=== PATIENT | male | born 1975 | race Hispanic/Latino ===

== ENCOUNTER 2022-07-07 23:20 | Emergency (ER) | payer MEDICARE, OTHER ==
[~2022-07-07] VITALS: Ht 175.3 cm; Wt 81.6 kg
[2022-07-08] MEDS ORDERED: KETOROLAC TROMETHAMINE 60 MG/2 ML VIAL IM ONE (00:30)
[2022-07-08] MEDS ORDERED: ORPHENADRINE CITRATE 30 MG/ML VIAL IM ONE (00:30)
[2022-07-08 00:43] LABS: CLARITY,URINE CLEAR (CLEAR); COLOR,URINE YELLOW (YELLOW); KETONES,URINE NEGATIVE (NEGATIVE); LEUKOCYTE ESTERASE ,URINE NEGATIVE (NEGATIVE); NITRITE,URINE NEGATIVE (NEGATIVE); PROTEIN,URINE DIPSTICK NEGATIVE (NEGATIVE); URINE UROBILINOGEN 0.2 mg/dL (0.2 - 1)
[2022-07-08 00:48] LABS: AMORPHOUS SEDIMENT,URINE FEW (FEW); BACTERIA,URINE RARE /HPF; WBC,URINE (MAN) 0-5 /HPF (0-5)
[2022-07-08] MEDS ORDERED: MEDROL4 M2 PO (01:41)
[2022-07-08 02:23] VITALS: BP 127/73
== END 2022-07-08 02:24 | disposition home or self-care (01) ==
LOC: ER 23:33
DX: M54.41 Lumbago with sciatica, right side (principal); M62.81 Muscle weakness (generalized); R50.9 Fever, unspecified; G40.909 Epilepsy, unspecified, not intractable, without status epilepticus; H54.7 Unspecified visual loss; F17.210 Nicotine dependence, cigarettes, uncomplicated
CPT/HCPCS: 74176; 81001; 99283; J1885; J2360

== ENCOUNTER 2024-06-15 04:47 | Inpatient (IN) | payer OTHER, MEDICARE ==
[~2024-06-15] VITALS: Ht 175.3 cm; Wt 77.1 kg
[2024-06-15] VITALS (9 sets, daily range): BP systolic 119–141; BP diastolic 75–96; PULSE 62–91; RESP 18; TEMP 97.3–98.6; O2SAT 97–100
[~2024-06-15 04:47] MED LIST: MEDROL4 M2 PO
[2024-06-15 05:14] LABS: BASOPHILS # (AUTO) 0.1 (0.0-0.1); EOSINOPHILS # (AUTO) 0.4 (0.0-0.4); EOSINOPHILS % 5.6 % (0.0-6.0); HEMATOCRIT 42.9 % (38.2-49.6); HEMOGLOBIN 14.8 g/dL (14.0-18.0); LYMPHOCYTES # (AUTO) 2.1 (1.0-3.2); LYMPHOCYTES % 30.5 % (18.0-39.1); MEAN CORPUSCULAR HGB CONC 34.5 g/dL (31-35); MEAN CORPUSCULAR VOLUME 89.7 fL (81-99); MONOCYTES # (AUTO) 0.5 (0.2-0.8); MONOCYTES % 7.6 % (4.4-11.3); NEUTROPHILS # (AUTO) 3.8 (2.1-6.9); NEUTROPHILS % 55.2 % (38.7-80.0); PLATELET COUNT 248 x10e3/uL (140-360); RED BLOOD COUNT 4.78 x10e6/uL (4.3-5.7); RED CELL DISTRIBUTION WIDTH 12.7 % (11.7-14.4); WHITE BLOOD COUNT 6.96 x10e3/uL (4.8-10.8)
[2024-06-15] MEDS: SODIUM CHLORIDE 0.9% 1000ML 1,000 ML IV STA (05:21)
[2024-06-15] MEDS: ONDANSETRON HCL INJ 2MG/ML 2ML 2 MG/ML VIAL IV STA (05:21)
[2024-06-15] MEDS: Morphine 4mg INJECTION 4 MG/ML INJ IV STA ×2 (05:23→07:51)
[2024-06-15 05:34] LABS: BILIRUBIN,URINE NEGATIVE (NEGATIVE); CLARITY,URINE CLEAR (CLEAR); COLOR,URINE YELLOW (YELLOW); GLUCOSE, URINE NEGATIVE (NEGATIVE); KETONES,URINE NEGATIVE (NEGATIVE); LEUKOCYTE ESTERASE ,URINE NEGATIVE (NEGATIVE); NITRITE,URINE NEGATIVE (NEGATIVE); OPIATES SCREEN,URINE NEGATIVE (NEGATIVE); PH,URINE 6 (5 - 7); PROTEIN,URINE DIPSTICK NEGATIVE (NEGATIVE); URINE UROBILINOGEN 0.2 mg/dL (0.2 - 1)
[2024-06-15 05:35] LABS: AMPHETAMINES SCREEN,URINE NEGATIVE (NEGATIVE); BENZODIAZEPINES SCREEN,URINE NEGATIVE (NEGATIVE); CANNABINOIDS SCREEN,URINE NEGATIVE (NEGATIVE); COCAINE SCREEN,URINE POSITIVE (NEGATIVE); METHADONE SCREEN, URINE NEGATIVE (NEGATIVE); PHENCYCLIDINE SCREEN,URINE NEGATIVE (NEGATIVE)
[2024-06-15 05:38] LABS: ALBUMIN 3.9 g/dL (3.5-5.0); ALBUMIN/GLOBULIN RATIO 1.2 (0.8-2.0); ANION GAP 14.3 mmol/L (8-16); BILIRUBIN,TOTAL 0.2 mg/dL (0.2-1.2); CALCIUM 8.7 mg/dL (8.4-10.2); CREATININE, SERUM 0.8 mg/dL (0.72-1.25); POTASSIUM 4.3 mmol/L (3.5-5.1); TOTAL PROTEIN 7.1 g/dL (6.5-8.1)
[2024-06-15] MEDS ORDERED: IOPAMIDOL 370 MG/ML 100 ML INFUS..BTL INJ ONE (05:43)
[2024-06-15 05:59] LABS: BACTERIA,URINE FEW /HPF; WBC,URINE (MAN) 0-5 /HPF (0-5)
[2024-06-15] MEDS ORDERED: Morphine 4mg INJECTION 4 MG/ML INJ IV PRN (09:30)
[2024-06-15] MEDS: SODIUM CHLORIDE 0.9% 1000ML 1,000 ML IV SCH (09:30)
[2024-06-15] MEDS: METRONIDAZOLE 750MG/NS 150ML 150 ML IV SCH (10:30)
[2024-06-15] MEDS: METRONIDAZOLE 500MG/NS 100ML 100 ML IV ONE (12:37)
[2024-06-15] MEDS: OXCARBAZEPINE 300 MG TAB PO SCH (16:44)
[2024-06-16 00:16] VITALS: BP 149/73; PULSE 78; RESP 17; TEMP 98.6; O2SAT 99
[2024-06-16] MEDS: ONDANSETRON HCL INJ 2MG/ML 2ML 2 MG/ML VIAL IV PRN (05:58)
[2024-06-16] MEDS ORDERED: SEVOFLURANE INHAL SOLN 250 ML PEN BTL ONE (07:38)
[2024-06-16 07:41] LABS: BASOPHILS % 0.5 % (0.0-1.0); EOSINOPHILS # (AUTO) 0.2 (0.0-0.4); EOSINOPHILS % 4.3 % (0.0-6.0); HEMATOCRIT 40.7 % (38.2-49.6); HEMOGLOBIN 14.1 g/dL (14.0-18.0); LYMPHOCYTES # (AUTO) 1.7 (1.0-3.2); LYMPHOCYTES % 30.3 % (18.0-39.1); MEAN CORPUSCULAR HGB CONC 34.6 g/dL (31-35); MEAN CORPUSCULAR VOLUME 89.5 fL (81-99); MONOCYTES # (AUTO) 0.3 (0.2-0.8); MONOCYTES % 5.3 % (4.4-11.3); NEUTROPHILS # (AUTO) 3.3 (2.1-6.9); NEUTROPHILS % 59.4 % (38.7-80.0); PLATELET COUNT 234 x10e3/uL (140-360); RED BLOOD COUNT 4.55 x10e6/uL (4.3-5.7); RED CELL DISTRIBUTION WIDTH 12.4 % (11.7-14.4); WHITE BLOOD COUNT 5.61 x10e3/uL (4.8-10.8)
[2024-06-16] MEDS ORDERED: METOCLOPRAMIDE HCL 10 MG/2ML VIAL ONE (07:41)
[2024-06-16] MEDS ORDERED: Morphine 10mg syringe 10 MG/ML INJ ONE (07:41)
[2024-06-16 07:57] LABS: ALBUMIN 3.6 g/dL (3.5-5.0); ALBUMIN/GLOBULIN RATIO 1.3 (0.8-2.0); ANION GAP 12.2 mmol/L (8-16); BILIRUBIN,TOTAL 0.4 mg/dL (0.2-1.2); CALCIUM 8.3 mg/dL (8.4-10.2); CREATININE, SERUM 0.74 mg/dL (0.72-1.25); MAGNESIUM 1.9 MG/DL (1.3-2.1); POTASSIUM 4.2 mmol/L (3.5-5.1); TOTAL PROTEIN 6.3 g/dL (6.5-8.1)
[2024-06-16] MEDS ORDERED: SUGAMMADEX SODIUM 200 MG/2 ML VIAL IV ONE ×2 (08:03→08:29)
[2024-06-16] MEDS: FENTANYL CITRATE/PF 100MCG/2 ML INJ IV ONE ×2 (08:49→08:50)
[2024-06-16] MEDS: FENTANYL CITRATE/PF 100MCG/2 ML INJ ONE (09:16)
[2024-06-16 09:29] VITALS: BP 153/87; PULSE 80; RESP 20; TEMP 98.2; O2SAT 98
[2024-06-16 09:39] VITALS: BP 153/87; PULSE 80; RESP 20; TEMP 98.2; O2SAT 98
[2024-06-16 12:08] VITALS: BP 130/86; PULSE 69; RESP 20; TEMP 98.6; O2SAT 98
[2024-06-16 16:06] VITALS: BP 123/82; PULSE 80; RESP 20; TEMP 98.6; O2SAT 97
[2024-06-16] MEDS ORDERED: KETOROLAC TROME10 MG PO (16:47)
[2024-06-16] MEDS ORDERED: METRONIDAZOLE500 MG PO (16:47)
[2024-06-16] MEDS ORDERED: TRILEPTAL300 MG PO (16:47)
[2024-06-16] MEDS ORDERED: CIPROFLOXACIN500 MG PO (16:47)
== END 2024-06-16 17:19 | disposition home or self-care (01) | DRG 418 ==
LOC: ER 04:55 → ERHOLD 09:24 → MED/SURG3 11:05
PROVIDERS: ADMIT Internal Medicine; ATTEND Internal Medicine
PROC: 0FT44ZZ Resection of Gallbladder, Percutaneous Endoscopic Approach (ICD-10-PCS; principal; 2024-06-16 07:15)
DX: K81.0 Acute cholecystitis (principal); I69.351 Hemiplegia and hemiparesis following cerebral infarction affecting right dominant side; F17.210 Nicotine dependence, cigarettes, uncomplicated; N20.0 Calculus of kidney; N52.9 Male erectile dysfunction, unspecified; I69.398 Other sequelae of cerebral infarction; G40.909 Epilepsy, unspecified, not intractable, without status epilepticus; H53.47 Heteronymous bilateral field defects; M21.371 Foot drop, right foot; H54.8 Legal blindness, as defined in USA; R41.3 Other amnesia; R53.81 Other malaise; F14.10 Cocaine abuse, uncomplicated; Z91.013 Allergy to seafood
CPT/HCPCS: 36415; 74177; 76705; 80053; 80307; 80320; 81001; 83690; 83735; 85025; 88304; 94799; 99283; J0690; J0696; J2270; J2405; J2765; J7030; Q9967